=== PATIENT | female | born 1945 | race Caucasian/White ===

== ENCOUNTER → 2018-01-26 | Outpatient (CLI) | payer MEDICARE ==
[~2018-01-26] MED LIST: ASPIRIN CHEW81 MG PO; IRON159 MG PO; LISINOPRIL20 MG PO; MELOXICAM15 MG PO; OMEPRAZOLE20 MG PO; WELLBUTRIN100 MG PO
--- NOTE | 2018-01-26 12:59 | Diagnostic Imaging Report ---
PROCEDURE:X-RAY LEFT FOOT, COMPLETE COMPARISON:None. INDICATIONS:ULCER ON LEFT FOOT, second toe FINDINGS: Normal mineralization. No acute, displaced fracture or dislocation. No lytic or blastic lesions. No areas of cortical erosion or destruction. Specifically, no cortical abnormalities in the second toe. Degenerative changes in the midfoot/hindfoot joints, and first metatarsophalangeal joint, with mild hallux valgus deformity. Small anterior calcaneal enthesophyte. No soft tissue defects are identified. CONCLUSION: 1. No areas of cortical erosion or destruction. Specifically, no cortical abnormalities are noted in the second toe. No soft tissue defects are seen. Milton Contreras M.D. Dictated by: Milton Contreras M.D. on 01/26/2018 at 13:04 Electronically approved by: Milton Contreras M.D. on 01/26/2018 at 13:04
== END ==
LOC: RAD 10:55
PROVIDERS: ATTEND Family Medicine
DX: L97.509 Non-pressure chronic ulcer of other part of unspecified foot with unspecified severity (principal)

== ENCOUNTER 2019-08-08 13:25 | Inpatient (IN) | payer MEDICARE ==
[~2019-08-08] VITALS: Ht 167.6 cm; Wt 103.7 kg
--- OUTSIDE RECORDS SUMMARY | 2019-08-08 13:28 | XMS REPORT ---
Author Author [facility] Address Unknown Phone Unavailable Care Team Providers Care Vegetable Farmworker Name Role Phone Remedios RENDON Unavailable Unavailable Problems This patient has no known problems. Allergies, Adverse Reactions, Alerts This patient has no known allergies or adverse reactions. Medications This patient has no known medications. Results Test Description Test Time Test Comments Text Results Atomic Results Result Comments FOOT LEFT COMPLETE 2018-01-26 13:04:00 [facility] [address] [address] Patient Name: KELBY PIKE MR #: [id number] : 1945 Age/Sex: 72/F Req #: [id number] Adm Physician: Ordered by: NASEEM RENDON MD Report #: [id number] Location: [facility] Room/Bed: Procedure: [id number] DX/FOOT LEFT COMPLETE Exam Date: 01/26/18 Exam Time: 1100 REPORT STATUS: Signed PROCEDURE: X-RAY LEFT FOOT, COMPLETE COMPARISON: None. INDICATIONS: ULCER ON LEFT FOOT, second toe FINDINGS: Normal mineralization. No acute, displaced fracture or dislocation. No lytic or blastic lesions. No areas of cortical erosion or destruction. Specifically, no cortical abnormalities in the second toe. Degenerative changes in the midfoot/hindfoot joints, and first metatarsophalangeal joint, with mild hallux valgus deformity. Small anterior calcaneal enthesophyte. No soft tissue defects are identified. CONCLUSION: 1. No areas of cortical erosion or destruction. Specifically, no cortical abnormalities are noted in the second toe. No soft tissue defects are seen. Brad Cazares M.D. Dictated by: Brad Cazares M.D. on 01/26/2018 at 13:04 E lectronically approved by: Brad Cazares M.D. on 01/26/2018 at 13:04 Dictated By: BRAD CAZARES MD 1302 Transcribed By: ROHITH on 01/26/18 1304 COPY TO: NASEEM RENDON MD
--- NOTE | 2019-08-08 14:22 | NUR ---
incontinence care provided for stool with assistance x 1. patient placed in clean adult brief, provided clean linens and gown. bed placed in lowest position slightly trendelenburg with call light in reach.
--- NOTE | 2019-08-08 15:00 | Diagnostic Imaging Report ---
EXAMINATION: CHEST SINGLE (PORTABLE) INDICATION: Weakness, hypotension COMPARISON: None FINDINGS: LINES/TUBES:EKG leads overlie the chest. LUNGS:The lung volumes are low. Pulmonary vascular crowding, likely related to low lung volumes. No focal consolidation or pulmonary edema. PLEURA:No pleural effusion or pneumothorax. MEDIASTINUM:The cardiomediastinal silhouette appears enlarged. Large hiatal hernia. BONES/SOFT TISSUES:No acute osseous injury. ABDOMEN:No free air under the diaphragm. IMPRESSION: Low lung volumes. No focal pneumonia or pulmonary edema. Cardiomegaly. Large hiatal hernia. Signed by: Bhumika Ferrara MD on 08/08/2019 2:57 PM
[2019-08-08 15:05] LABS: BASOPHILS # (AUTO) 0.1 (0.0-0.1); BASOPHILS % 0.5 % (0.0-1.0); EOSINOPHILS # (AUTO) 0.7 (0.0-0.4); HEMATOCRIT 43.1 % (34.2-44.1); HEMOGLOBIN 13.5 g/dL (12.0-16.0); LYMPHOCYTES # (AUTO) 2.2 (1.0-3.2); LYMPHOCYTES % 16.5 % (18.0-39.1); MEAN CORPUSCULAR HEMOGLOBIN 28.8 pg (28-32); MEAN CORPUSCULAR HGB CONC 31.3 g/dL (31-35); MEAN CORPUSCULAR VOLUME 91.9 fL (81-99); MONOCYTES # (AUTO) 0.9 (0.2-0.8); MONOCYTES % 6.6 % (4.4-11.3); NEUTROPHILS # (AUTO) 9.5 (2.1-6.9); NEUTROPHILS % 70.8 % (38.7-80.0); PLATELET COUNT 243 x10e3/uL (140-360); RED BLOOD COUNT 4.69 x10e6/uL (3.6-5.1); RED CELL DISTRIBUTION WIDTH 14.1 % (11.7-14.4)
[2019-08-08 15:28] LABS: ALBUMIN 3.1 g/dL (3.5-5.0); ALBUMIN/GLOBULIN RATIO 0.8 (0.8-2.0); CALCIUM 8.8 mg/dL (8.4-10.2); CREATININE, SERUM 1.57 mg/dL (0.57-1.11)
[2019-08-08 15:41] LABS: CREATINE KINASE MB 1.6 ng/mL (0-5.0)
[2019-08-08] MEDS ORDERED: MORPHINE SULFATE INJ 4 MG/ML INJ 1ML IV STA (15:59)
[2019-08-08] MEDS ORDERED: MORPHINE SULFATE 2 MG/ML SYR 1ML IV ONE (16:15)
--- NOTE | 2019-08-08 17:20 | NUR ---
incontinence care provided for stool with assistance x 1. Patient placed in clean adult brief, clean gown and new linens provided.
--- NOTE | 2019-08-08 17:42 | Diagnostic Imaging Report ---
EXAM: CT Abdomen and Pelvis WITHOUT intravenous contrast INDICATION: Abdominal pain, hypotension COMPARISON: CT abdomen and pelvis of 05/03/2014 TECHNIQUE: Abdomen and pelvis were scanned utilizing a multidetector helical scanner from the lung base to the pubic symphysis without administration of IV contrast. Coronal and sagittal reformations were obtained. IV CONTRAST: None ORAL CONTRAST: Water COMPLICATIONS: None RADIATION DOSE: Total DLP: 932.1 mGy*cm Dose modulation, iterative reconstruction, and/or weight based adjustment of the mA/kV was utilized to reduce the radiation dose to as low as reasonably achievable. FINDINGS: LOWER THORAX: Mild bibasilar dependent subsegmental atelectasis. Scattered coronary artery calcifications. Large hiatal hernia with the majority of the stomach above the diaphragm. HEPATOBILIARY: No focal liver lesion. Status post cholecystectomy. SPLEEN: No splenomegaly. PANCREAS: No focal masses or ductal dilatation. ADRENALS: No adrenal nodules. KIDNEYS/URETERS: No hydronephrosis, stones, or solid mass lesions. PELVIC ORGANS/BLADDER: Evaluation limited by streak artifact related to right and left total hip arthroplasty hardware. PERITONEUM / RETROPERITONEUM: No free air or fluid. LYMPH NODES: No lymphadenopathy. VESSELS: Scattered atherosclerotic calcifications of the nonaneurysmal abdominal aorta and major branches. GI TRACT: Mild diverticulosis. No CT evidence of diverticulitis. Fluid-filled colon no abnormal bowel thickening. No bowel obstruction. The appendix is not well visualized, however there are no secondary inflammatory changes in the right lower quadrant to suggest acute appendicitis. BONES AND SOFT TISSUES: No acute osseous injury. No suspicious lytic or blastic lesions. Levoconvex curvature and severe degenerative changes of the lumbar spine. IMPRESSION: Fluid-filled colon, which can be seen with enterocolitis. No abnormal bowel thickening or bowel obstruction. Diverticulosis without CT evidence of diverticulitis. Large hiatal hernia with the majority of the stomach above the diaphragm. Signed by: Bhumika Ferrara MD on 08/08/2019 5:39 PM
[2019-08-08] MEDS ORDERED: FAMOTIDINE 20 MG/2 ML VIAL IV SCH (18:00)
[2019-08-08] MEDS: SODIUM CHLORIDE 0.9% 1000ML 1,000 ML IV SCH (18:12)
--- NOTE | 2019-08-08 19:06 | NUR ---
report given to Davon IZQUIERDO
[2019-08-08 21:34] VITALS: BP 140/69
[2019-08-09] VITALS (12 sets, daily range): BP systolic 117–148; BP diastolic 58–95
--- NOTE | 2019-08-09 00:43 | NUR ---
PT IS TRANSFERRED FROM ER .PT IS AOX3 RESPIRATIONS ARE EVEN AND UN LABORED .SKIN WARM AND DRY TO TOUCH.DX ABD PAIN AND DIARRHEA LEFT AC 20G NS AT 125 CC/HR ASSESSMENT DONE .ORIENTED THE PT TO THE ENVIRONMENT .CALL LIGHT WITH IN REACH.BED LOWEST POSITION .CONTINUE TO MONITOR
[2019-08-09] MEDS: ONDANSETRON HCL INJ 2MG/ML 2ML 2 MG/ML VIAL IV PRN (04:05)
[2019-08-09] MEDS: MORPHINE SULFATE 2 MG/ML SYR 1ML IV PRN (04:05)
[2019-08-09 04:22] LABS: CREATINE KINASE MB 1.8 ng/mL (0-5.0)
[2019-08-09] MEDS: SODIUM CHLORIDE 0.9% 1000ML 1,000 ML IV SCH ×3 (05:31→16:25)
[2019-08-09 06:37] LABS: BASOPHILS % 0.2 % (0.0-1.0); EOSINOPHILS # (AUTO) 0.1 (0.0-0.4); EOSINOPHILS % 0.5 % (0.0-6.0); HEMATOCRIT 36.9 % (34.2-44.1); HEMOGLOBIN 11.5 g/dL (12.0-16.0); LYMPHOCYTES # (AUTO) 1.3 (1.0-3.2); LYMPHOCYTES % 8.7 % (18.0-39.1); MEAN CORPUSCULAR HEMOGLOBIN 28.5 pg (28-32); MEAN CORPUSCULAR HGB CONC 31.2 g/dL (31-35); MEAN CORPUSCULAR VOLUME 91.6 fL (81-99); MONOCYTES # (AUTO) 1.1 (0.2-0.8); MONOCYTES % 7.1 % (4.4-11.3); NEUTROPHILS # (AUTO) 12.3 (2.1-6.9); NEUTROPHILS % 83.1 % (38.7-80.0); PLATELET COUNT 157 x10e3/uL (140-360); RED BLOOD COUNT 4.03 x10e6/uL (3.6-5.1); RED CELL DISTRIBUTION WIDTH 14.2 % (11.7-14.4)
--- NOTE | 2019-08-09 06:47 | NUR ---
.PT RESTING .BEDSIDE REPORT GIVEN TO THE ONCOMING NURSE
[2019-08-09 06:55] LABS: ALBUMIN 2.7 g/dL (3.5-5.0); ALBUMIN/GLOBULIN RATIO 0.8 (0.8-2.0); CREATININE, SERUM 1.34 mg/dL (0.57-1.11)
[2019-08-09] MEDS: FAMOTIDINE 20 MG/2 ML VIAL IV SCH ×2 (09:00→16:19)
[2019-08-09 11:40] LABS: CREATINE KINASE MB 0.9 ng/mL (0-5.0)
[2019-08-09] MEDS ORDERED: COLACE100 MG PO (17:16)
[2019-08-09] MEDS ORDERED: LASIX20 MG PO (17:28)
[2019-08-09] MEDS ORDERED: PROPRANOLOL HCL60 M1 (17:28)
[2019-08-09] MEDS ORDERED: LYRICA150 MG (17:28)
[2019-08-09] MEDS ORDERED: MECLIZINE HCL12.5 MG PO (17:28)
[2019-08-09] MEDS ORDERED: CYMBALTA30 MG (17:28)
[2019-08-09] MEDS: CIPROFLOXACIN 400 MG/D5W 200ML 200 ML IV SCH (17:48)
--- NOTE | 2019-08-09 18:44 | NUR ---
LEFT AC IV INFILTRATED WHILE PATIENT WAS IN THE BATHROOM. SALINE LOCK REMOVED. AREA IS SWOLLEN AND TENDER. WARM BLANKET AND ELEVATION TO HELP IT REDUCE. NEW SALINE LOCK STARTED IN THE RIGHT WRIST22 G WITHOUT DIFFICULTY
--- NOTE | 2019-08-09 19:23 | NUR ---
RECEIVED PT IN BED AOX3 .PT LEFT UPPER ARM INFILTRATED .C/O SLIGHT ABD PAIN .CALL LIGHT WITH IN REACH .CONTINUE TO MONITOR
[2019-08-09] MEDS: METRONIDAZOLE 500MG/NS 100ML 100 ML IV SCH (22:30)
[2019-08-10] VITALS (8 sets, daily range): BP systolic 132–150; BP diastolic 60–67
[2019-08-10] MEDS: MORPHINE SULFATE 2 MG/ML SYR 1ML IV PRN (00:45)
--- NOTE | 2019-08-10 01:19 | History and Physical ---
CHIEF COMPLAINT: Nausea and near-syncope. HISTORY OF PRESENT ILLNESS: Ms. Susan Mace is a 74-year-old female with a history of iron deficiency and history of neuropathy, who was in usual state of health until the patient came back from her visit to her daughters, which is in the [place]. The patient came back and was ready to go to the bathroom and all of a sudden the patient had this abdominal pain. The patient made it to the bathroom, sat on the pot and had a near-syncopal episode, almost fainted. The patient had some nausea and no vomiting and the patient activated 911 and the patient was brought here. PAST MEDICAL HISTORY: History of depression, history of iron deficiency anemia, hypertension, and essential tremors and also with neuropathy. MEDICATIONS: She takes at home: 1. Wellbutrin 100 mg, a total of 300 daily. 2. Docusate 100 mg twice a day. 3. Duloxetine 30 mg b.i.d. 4. Ferrous sulfate 65 mg twice a day. 5. Lasix 20 mg daily. 6. Lisinopril 20 mg daily. 7. Meclizine 12.5 mg daily. 8. Omeprazole 20 mg daily. 9. Pregabalin 150 mg daily. 10. twice a day. SURGICAL HISTORY: History of bilateral knee replacement, history of bilateral hip replacement and gallbladder surgery. ALLERGIES: ALLERGIC TO DIAZEPAM. SOCIAL HISTORY: No EtOH. No IV drug abuse. No history of smoking. REVIEW OF SYSTEMS: Negative for chest pain. Positive for abdominal pain and positive for nausea. No vomiting. No diarrhea. No constipation. No rectal bleeding. No hematochezia. No hematemesis. PHYSICAL EXAMINATION: VITAL SIGNS: Temperature is 99.5, respiration of 18, blood pressure is 140/63, pulse oximetry of 95%. HEENT: Normocephalic, atraumatic. Pupils are reactive to light and accommodation. CVS: S1 and S2 normal. Regular rate and rhythm. ABDOMEN: Tender in the epigastrium and the periumbilical area in the left lower quadrant. No rebound. No guarding present. EXTREMITIES: No clubbing, no cyanosis, no edema. LABORATORY VALUES: White count is 14,000, hemoglobin of 11.5, neutrophil count is 83.1. Chemistry shows sodium of 142, potassium of 4.0, BUN of 25, creatinine of 1.35. Troponins have been trended to be negative. IMAGING STUDIES: Chest x-ray shows a large hiatal hernia and cardiomegaly. No pulmonary findings. CT findings show fluid-filled colon, which could be seen in enterocolitis. No abdominal wall thickening or wall obstruction. Diverticulosis without evidence of diverticulitis. Large hiatal hernia with the majority of stomach above the diaphragm. ASSESSMENT: 1. Colitis. 2. Intractable nausea and abdominal pain. 3. Hypertension. 4. Hyperlipidemia. 5. Morbid obesity. PLAN: Continue on Levaquin and Flagyl, which have been started for the patient. The patient is also on sodium chloride 125 mL an hour, morphine sulfate for pain control. We will restart her home medication. Further recommendation per clinical course. We will also start clear liquid diet. Additional diagnosis include acute kidney injury, for which fluid resuscitation is the treatment. MD JUDIE Thapa/MODL /[id number]
[2019-08-10] MEDS ORDERED: ACETAMINOPHEN 325 MG TAB PO PRN (03:30)
[2019-08-10] MEDS: CIPROFLOXACIN 400 MG/D5W 200ML 200 ML IV SCH ×2 (04:00→16:09)
[2019-08-10 06:11] LABS: BASOPHILS % 0.4 % (0.0-1.0); EOSINOPHILS # (AUTO) 0.4 (0.0-0.4); EOSINOPHILS % 3.9 % (0.0-6.0); HEMATOCRIT 31.5 % (34.2-44.1); HEMOGLOBIN 10.1 g/dL (12.0-16.0); LYMPHOCYTES # (AUTO) 1.6 (1.0-3.2); LYMPHOCYTES % 17.8 % (18.0-39.1); MEAN CORPUSCULAR HEMOGLOBIN 29.2 pg (28-32); MEAN CORPUSCULAR HGB CONC 32.1 g/dL (31-35); MONOCYTES # (AUTO) 0.7 (0.2-0.8); NEUTROPHILS # (AUTO) 6.2 (2.1-6.9); NEUTROPHILS % 69.6 % (38.7-80.0); PLATELET COUNT 109 x10e3/uL (140-360); RED BLOOD COUNT 3.46 x10e6/uL (3.6-5.1); RED CELL DISTRIBUTION WIDTH 14.4 % (11.7-14.4)
--- NOTE | 2019-08-10 06:24 | NUR ---
PT C/O PAIN GIVEN ORDERED MORPHINE .DR DALEY HAVE SEEN THE PT .GIVEN NEW ORDERS .CONTINUE TO MONITOR
[2019-08-10] MEDS: METRONIDAZOLE 500MG/NS 100ML 100 ML IV SCH ×3 (06:27→21:04)
[2019-08-10] MEDS: PANTOPRAZOLE 40 MG 10ML VIAL IV SCH ×2 (06:40→16:09)
[2019-08-10] MEDS: SODIUM CHLORIDE 0.9% 1000ML 1,000 ML IV SCH ×3 (06:41→21:28)
[2019-08-10 06:44] LABS: ALBUMIN 2.5 g/dL (3.5-5.0); ALBUMIN/GLOBULIN RATIO 0.8 (0.8-2.0); ANION GAP 9.4 mmol/L (8-16); CALCIUM 8.6 mg/dL (8.4-10.2); POTASSIUM 3.4 mmol/L (3.5-5.1)
[2019-08-10 07:03] LABS: FERRITIN 85.2 ng/mL (4.63-204.00)
--- NOTE | 2019-08-10 07:30 | NUR ---
BED SIDE REPORT GIVEN TO THE ONCOMING NURSE
[2019-08-10 07:52] LABS: CLARITY,URINE CLEAR (CLEAR); COLOR,URINE YELLOW (YELLOW); LEUKOCYTE ESTERASE ,URINE TRACE (NEGATIVE)
[2019-08-10 07:53] LABS: BILIRUBIN,URINE NEGATIVE (NEGATIVE); KETONES,URINE NEGATIVE (NEGATIVE); NITRITE,URINE NEGATIVE (NEGATIVE); PROTEIN,URINE DIPSTICK NEGATIVE (NEGATIVE); URINE UROBILINOGEN 0.2 mg/dL (0.2 - 1)
[2019-08-10 07:59] LABS: BACTERIA,URINE MODERATE /HPF; EPITHELIAL CELLS,URINE MANY /LPF
[2019-08-10] MEDS: BUPROPION HCL 150 MG TABCR PO SCH (09:00)
[2019-08-10] MEDS: LISINOPRIL 20 MG TAB PO SCH (09:00)
[2019-08-10] MEDS: FAMOTIDINE 20 MG/2 ML VIAL IV SCH ×2 (09:00→17:59)
[2019-08-10] MEDS: DOCUSATE SODIUM 100 MG CAP PO SCH (09:00)
[2019-08-10] MEDS: DULOXETINE HCL 30 MG DELAYED RELEASE PO SCH ×2 (09:00→17:59)
[2019-08-10] MEDS: FUROSEMIDE 20 MG TAB PO SCH (09:00)
[2019-08-10] MEDS ORDERED: PANTOPRAZOLE SOD 40 MG TABEC PO SCH (09:00)
--- NOTE | 2019-08-10 10:09 | Progress Note ---
DATE: SUBJECTIVE: A 74-year-old female, who comes in with symptoms of colitis. The patient still has some abdominal pain. OBJECTIVE: VITAL SIGNS: Temperature is 97.9, afebrile, last T-max on 08/09/2019 at 1944 shows 99.5 and pulse oximetry of 93% on room air. HEENT: Normocephalic and atraumatic. CVS: S1 and S2 normal. LUNGS: Clear to auscultation. ABDOMEN: Protuberant, tender in the epigastrium. EXTREMITIES: No clubbing, no cyanosis, and no edema. LABORATORY VALUES: Today's white count is 8.93 trended down, hemoglobin of 10.1, hematocrit of 31.5, neutrophil count of 69.6. Chemistries are pending and stool studies not done yet. ASSESSMENT: Ms. Susan Mace with: 1. Gastroenteritis. 2. Leukocytosis. 3. Intractable nausea and pain. 4. Hyperlipidemia. 5. Morbid obesity. PLAN: Continue on Levaquin and Flagyl. Continue with fluids at this time. Morphine sulfate for pain control. Further recommendation per clinical course and we are awaiting stool studies and we will monitor the patient and treatment per clinical course. MD JUDIE Thapa/IFRAHL /[id number]
[2019-08-10] MEDS: ENOXAPARIN 30 MG/0.3 ML SYR SC SCH (17:59)
[2019-08-11] VITALS (8 sets, daily range): BP systolic 109–148; BP diastolic 51–67
[2019-08-11] MEDS: SODIUM CHLORIDE 0.9% 1000ML 1,000 ML IV SCH ×3 (01:01→18:31)
[2019-08-11] MEDS: PANTOPRAZOLE 40 MG 10ML VIAL IV SCH ×2 (02:47→15:30)
[2019-08-11] MEDS: CIPROFLOXACIN 400 MG/D5W 200ML 200 ML IV SCH ×2 (03:13→16:00)
[2019-08-11] MEDS: METRONIDAZOLE 500MG/NS 100ML 100 ML IV SCH ×3 (05:20→22:00)
[2019-08-11 05:21] LABS: BASOPHILS % 0.5 % (0.0-1.0); EOSINOPHILS # (AUTO) 0.3 (0.0-0.4); EOSINOPHILS % 4.9 % (0.0-6.0); HEMATOCRIT 32.8 % (34.2-44.1); HEMOGLOBIN 10.4 g/dL (12.0-16.0); LYMPHOCYTES # (AUTO) 1.5 (1.0-3.2); LYMPHOCYTES % 22.4 % (18.0-39.1); MEAN CORPUSCULAR HGB CONC 31.7 g/dL (31-35); MEAN CORPUSCULAR VOLUME 91.4 fL (81-99); MONOCYTES # (AUTO) 0.6 (0.2-0.8); MONOCYTES % 9.5 % (4.4-11.3); NEUTROPHILS % 62.1 % (38.7-80.0); PLATELET COUNT 111 x10e3/uL (140-360); RED BLOOD COUNT 3.59 x10e6/uL (3.6-5.1); RED CELL DISTRIBUTION WIDTH 14.1 % (11.7-14.4)
[2019-08-11 05:44] LABS: ALBUMIN 2.6 g/dL (3.5-5.0); ALBUMIN/GLOBULIN RATIO 0.7 (0.8-2.0); ANION GAP 11.8 mmol/L (8-16); CALCIUM 8.5 mg/dL (8.4-10.2); CREATININE, SERUM 1.03 mg/dL (0.57-1.11); POTASSIUM 3.8 mmol/L (3.5-5.1)
[2019-08-11] MEDS: ONDANSETRON HCL INJ 2MG/ML 2ML 2 MG/ML VIAL IV PRN (06:26)
[2019-08-11] MEDS: MORPHINE SULFATE 2 MG/ML SYR 1ML IV PRN (06:26)
[2019-08-11] MEDS: IRON SUCROSE 100 MG in SODIUM CHLORIDE 0.9% 100 ML 100 ML IV SCH (08:00)
[2019-08-11] MEDS: DOCUSATE SODIUM 100 MG CAP PO SCH (08:52)
[2019-08-11] MEDS: FAMOTIDINE 20 MG/2 ML VIAL IV SCH ×2 (08:52→17:00)
[2019-08-11] MEDS: BUPROPION HCL 150 MG TABCR PO SCH (08:52)
[2019-08-11] MEDS: FUROSEMIDE 20 MG TAB PO SCH (08:52)
[2019-08-11] MEDS: DULOXETINE HCL 30 MG DELAYED RELEASE PO SCH ×2 (08:52→17:00)
[2019-08-11] MEDS: LISINOPRIL 20 MG TAB PO SCH (08:52)
[2019-08-11] MEDS: ENOXAPARIN 30 MG/0.3 ML SYR SC SCH (17:00)
--- NOTE | 2019-08-11 19:30 | NUR ---
Patient received lying in bed. AAO x 3. Patient had no complaints of pain. Respirations even and non-labored. IVF infusing at 125 cc/hr. Safety measures in place. Patient instructed to call for assistance when needed. Call light within reach.
[2019-08-11] MEDS ORDERED: PEG (High)/E-LYTE SOLN 4,000 ML BTL PO ONE (23:45)
--- NOTE | 2019-08-11 23:46 | NUR ---
Dr. Cordelia Dolan here to see patient. New orders received to change diet from Full liquid to Clear liquid for Colonoscopy procedure tomorrow. And for patient to start taking Go-Danielly from 2pm on 08/12/19. Addendum: 08/12/19 at 0125 by Zoie Biswas RN RE: Above entry---Colonoscopy procedure is on 08/13/19.
[2019-08-12] VITALS (8 sets, daily range): BP systolic 127–159; BP diastolic 60–71
[2019-08-12] MEDS ORDERED: PEG (High)/E-LYTE SOLN 4,000 ML BTL PO ONE (00:15)
--- NOTE | 2019-08-12 01:05 | NUR ---
Patient informed about upcoming procedure--Colonoscopy. Patient voluntarily signed "Disclosure and Consent" form.
[2019-08-12] MEDS: PANTOPRAZOLE 40 MG 10ML VIAL IV SCH ×2 (03:30→14:21)
[2019-08-12] MEDS: SODIUM CHLORIDE 0.9% 1000ML 1,000 ML IV SCH ×3 (03:30→21:18)
[2019-08-12] MEDS: CIPROFLOXACIN 400 MG/D5W 200ML 200 ML IV SCH ×2 (04:00→16:00)
--- NOTE | 2019-08-12 05:07 | NUR ---
IV infiltrated on left hand. Old IV removed with tip intact. New IV inserted in right forearm 20G. Patient tolerated well.
[2019-08-12] MEDS: METRONIDAZOLE 500MG/NS 100ML 100 ML IV SCH ×3 (06:39→22:35)
--- NOTE | 2019-08-12 07:00 | NUR ---
Walking rounds and bedside report done. Patient resting comfortably.
[2019-08-12] MEDS: IRON SUCROSE 100 MG in SODIUM CHLORIDE 0.9% 100 ML 100 ML IV SCH (08:00)
[2019-08-12] MEDS: DOCUSATE SODIUM 100 MG CAP PO SCH (09:07)
[2019-08-12] MEDS: FAMOTIDINE 20 MG/2 ML VIAL IV SCH ×2 (09:07→17:00)
[2019-08-12] MEDS: DULOXETINE HCL 30 MG DELAYED RELEASE PO SCH ×2 (09:07→17:00)
[2019-08-12] MEDS: FUROSEMIDE 20 MG TAB PO SCH (09:08)
[2019-08-12] MEDS: FOLIC ACID 1 MG TAB PO SCH (09:08)
[2019-08-12] MEDS: BUPROPION HCL 150 MG TABCR PO SCH (09:09)
[2019-08-12] MEDS: LISINOPRIL 20 MG TAB PO SCH (09:09)
[2019-08-12] MEDS ORDERED: PEG (High)/E-LYTE SOLN 4,000 ML BTL PO NR (15:15)
[2019-08-12] MEDS: ENOXAPARIN 30 MG/0.3 ML SYR SC SCH (17:00)
--- NOTE | 2019-08-12 19:26 | NUR ---
WALKING ROUNDS COMPLETE. , PT STABLE AT THIS TIME.
--- NOTE | 2019-08-12 19:28 | NUR ---
Patient received sitting up in bed. AAO x 3. Patient had complaints of nausea and vomiting while attempting to drink Go-lytely but declines administration of Zofran. Will continue to monitor.
[2019-08-12] MEDS ORDERED: BISACODYL 5 MG TAB EC PO ONE ×2 (22:30→23:30)
[2019-08-12] MEDS ORDERED: ONDANSETRON HCL 4 MG ORAL DISINTEGRATING TAB PO PRN (22:30)
--- NOTE | 2019-08-12 22:42 | NUR ---
Dr. Dolan here to see patient. New orders received.
--- NOTE | 2019-08-12 23:39 | NUR ---
IV infiltrated on right arm. Old IV removed with tip intact. New IV inserted in right forearm 20G. Patient tolerated well.
[2019-08-13] VITALS (8 sets, daily range): BP systolic 126–145; BP diastolic 60–67
--- NOTE | 2019-08-13 00:06 | NUR ---
Stool specimen sent to lab for analysis.
[2019-08-13] MEDS ORDERED: BISACODYL 5 MG TAB EC PO ONE (00:30)
[2019-08-13] MEDS: SODIUM CHLORIDE 0.9% 1000ML 1,000 ML IV SCH ×3 (01:51→16:53)
[2019-08-13] MEDS: PANTOPRAZOLE 40 MG 10ML VIAL IV SCH ×2 (03:30→16:15)
[2019-08-13] MEDS: CIPROFLOXACIN 400 MG/D5W 200ML 200 ML IV SCH ×2 (04:08→16:00)
[2019-08-13] MEDS: METRONIDAZOLE 500MG/NS 100ML 100 ML IV SCH ×3 (05:53→22:30)
--- NOTE | 2019-08-13 07:00 | NUR ---
BSSR done. Patient resting comfortably.
--- NOTE | 2019-08-13 07:10 | NUR ---
RCD PT AT BED PT IS ALERT AND ORIENTED PT RESTING ON BED NO SIGNS OF ANY DISTRESS NOTE IV PATENT BED LOW AND LOCKED CALL LIGHT IN REACH
[2019-08-13] MEDS: IRON SUCROSE 100 MG in SODIUM CHLORIDE 0.9% 100 ML 100 ML IV SCH (08:00)
[2019-08-13] MEDS: LISINOPRIL 20 MG TAB PO SCH (08:36)
[2019-08-13] MEDS: FAMOTIDINE 20 MG/2 ML VIAL IV SCH ×2 (08:36→16:53)
[2019-08-13] MEDS: DOCUSATE SODIUM 100 MG CAP PO SCH (08:36)
[2019-08-13] MEDS: DULOXETINE HCL 30 MG DELAYED RELEASE PO SCH ×2 (08:36→16:53)
[2019-08-13] MEDS: FOLIC ACID 1 MG TAB PO SCH (08:36)
[2019-08-13] MEDS: FUROSEMIDE 20 MG TAB PO SCH (08:36)
[2019-08-13] MEDS: BUPROPION HCL 150 MG TABCR PO SCH (08:36)
--- NOTE | 2019-08-13 09:00 | NUR ---
PT NPO FOR PROCEDURE
--- NOTE | 2019-08-13 11:30 | NUR ---
TAP WATER ENEMA GIVEN
--- NOTE | 2019-08-13 13:44 | NUR ---
PT WENT TO PROCEDURE IN SAFE CONDITION
--- NOTE | 2019-08-13 16:00 | NUR ---
PT BACK AFTER PROCEDURE PT IS ALERT AND ORIENTED VITALS CHECKED BED LOW AD LOCKED CALL LIGHT IN REACH
[2019-08-13] MEDS: ENOXAPARIN 30 MG/0.3 ML SYR SC SCH (16:53)
--- NOTE | 2019-08-13 18:21 | NUR ---
DC TELEY BY ORDER
[2019-08-13 18:24] LABS: WBC,FECAL (FECAL LACTOFERRIN) POSITIVE (NEGATIVE)
[2019-08-13] MEDS ORDERED: GLUCAGON FOR INJ 1 MG VIAL ONE (18:25)
[2019-08-13] MEDS ORDERED: PROPOFOL IV EMULSION 10 MG/ML 50 ML VIAL ONE (18:25)
--- NOTE | 2019-08-13 18:40 | NUR ---
PT RESTING ON BED BED SIDE REPORT GIVEN TO ONCOMING NURSE
--- NOTE | 2019-08-13 18:59 | Operative Report ---
DATE OF PROCEDURE: 08/13/2019 SURGEON: Shawn Dolan MD PROCEDURE: Colonoscopy with polypectomy and biopsies. INDICATIONS FOR COLONOSCOPY: Bloody diarrhea. MEDICATIONS: The patient was done under MAC, please see anesthesiologist's note. PROCEDURE IN DETAIL: With the patient in the left lateral decubitus position, a flexible fiberoptic Olympus colonoscope was inserted into the rectum with ease and advanced all the way to the cecum. The scope was then withdrawn slowly. Mucosa overlying the cecum, ascending colon, and transverse colon appeared to be within normal limits. The descending and sigmoid, primarily the sigmoid colon was ulcerated and multiple biopsies were obtained. There was some diverticular disease noted in the sigmoid colon. One polyp was removed per snare electrocautery and additional polyp was hot biopsied in the rectum. The scope was then retroflexed into the distal rectum and small internal hemorrhoids were noted, none of which was actively bleeding. The scope was then straightened out, it was subsequently withdrawn, and the patient tolerated the procedure well. IMPRESSION: 1. Ulcerated left colon, biopsies obtained. 2. Diverticulosis. 3. Rectal polyps x2, one removed per snare electrocautery and one hot biopsied. 4. Internal hemorrhoids, none actively bleeding. PLAN: Follow up histology. Follow up stool studies. Initiate GI soft diet. Shawn Dolan MD [facility]/MODL /[id number] cc: Vinh Botello MD
--- NOTE | 2019-08-13 19:25 | NUR ---
Patient received asleep in bed. Arousable by tactile stimuli. No acute distress noted. Call light within reach.
--- NOTE | 2019-08-13 20:45 | Progress Note ---
DATE: SUBJECTIVE: The patient came in with colitis, gastroenteritis, and the patient underwent a colonoscopy today showed colitis and also polyps are snared. Currently, the patient is tolerating diet, feeling better. No chest pain or shortness of breath and is able to tolerate her diet. PHYSICAL EXAMINATION: GENERAL: The patient is alert and oriented x3. VITAL SIGNS: Temperature is 98.3, pulse of 87, respirations 17, and blood pressure is 133/60. HEENT: Normocephalic, atraumatic. Pupils are reactive to light and accommodation. CVS: S1 and S2 normal. Regular rhythm. ABDOMEN: Tender in the epigastric area, also in the left upper quadrant. EXTREMITIES: Otherwise, no clubbing, no cyanosis, no edema. MEDICATIONS: The patient is on enoxaparin for deep venous thrombosis prophylaxis. Duloxetine, pantoprazole 40, Flagyl, and Cipro. Iron replacement has been done. LABORATORY VALUES: From , hemoglobin and hematocrit are stable at 10.4 and 32.8. Chemistries; from , show a BUN of 10, creatinine of 1.03. ASSESSMENT: Ms. Susan Mace is a 74-year-old female with: 1. Colitis, gastroenteritis. 2. Leukocytosis, better. 3. Intractable nausea and pain, better. 4. Hyperlipidemia. Continue medication. 5. Morbid obesity. Continue monitoring. 6. Iron deficiency. Continue on Venofer. PLAN: Possible discharge tomorrow. Advance diet. Discontinue telemetry. Further recommendation per clinical course. MD JUDIE Thapa/MODL /[id number]
[2019-08-14] VITALS (8 sets, daily range): BP systolic 124–147; BP diastolic 60–65
[2019-08-14] MEDS: PANTOPRAZOLE 40 MG 10ML VIAL IV SCH ×2 (03:30→16:11)
[2019-08-14] MEDS: CIPROFLOXACIN 400 MG/D5W 200ML 200 ML IV SCH ×2 (04:25→16:11)
--- NOTE | 2019-08-14 04:28 | NUR ---
IV infiltrated on right arm. Old IV removed with tip intact. New IV inserted in right forearm 20G. Patient tolerated well.
[2019-08-14] MEDS: METRONIDAZOLE 500MG/NS 100ML 100 ML IV SCH (05:51)
--- NOTE | 2019-08-14 07:00 | NUR ---
Walking rounds done. Bedside shift report given to oncoming nurse.
[2019-08-14 07:23] LABS: BASOPHILS % 0.4 % (0.0-1.0); EOSINOPHILS # (AUTO) 0.1 (0.0-0.4); EOSINOPHILS % 1.8 % (0.0-6.0); HEMATOCRIT 32.7 % (34.2-44.1); HEMOGLOBIN 10.3 g/dL (12.0-16.0); LYMPHOCYTES # (AUTO) 1.4 (1.0-3.2); LYMPHOCYTES % 28.7 % (18.0-39.1); MEAN CORPUSCULAR HEMOGLOBIN 28.3 pg (28-32); MEAN CORPUSCULAR HGB CONC 31.5 g/dL (31-35); MEAN CORPUSCULAR VOLUME 89.8 fL (81-99); MONOCYTES # (AUTO) 0.6 (0.2-0.8); NEUTROPHILS # (AUTO) 2.7 (2.1-6.9); NEUTROPHILS % 54.9 % (38.7-80.0); PLATELET COUNT 129 x10e3/uL (140-360); RED BLOOD COUNT 3.64 x10e6/uL (3.6-5.1)
[2019-08-14 08:18] LABS: ANION GAP 13.5 mmol/L (8-16); CALCIUM 8.1 mg/dL (8.4-10.2); CREATININE, SERUM 1.02 mg/dL (0.57-1.11)
[2019-08-14 08:27] LABS: POTASSIUM 2.5 mmol/L (3.5-5.1)
[2019-08-14] MEDS: LISINOPRIL 20 MG TAB PO SCH (08:42)
[2019-08-14] MEDS: BUPROPION HCL 150 MG TABCR PO SCH (08:42)
[2019-08-14] MEDS: DOCUSATE SODIUM 100 MG CAP PO SCH (08:42)
[2019-08-14] MEDS: DULOXETINE HCL 30 MG DELAYED RELEASE PO SCH ×2 (08:42→18:04)
[2019-08-14] MEDS: FUROSEMIDE 20 MG TAB PO SCH (08:42)
[2019-08-14] MEDS: FAMOTIDINE 20 MG/2 ML VIAL IV SCH (08:42)
[2019-08-14] MEDS: FOLIC ACID 1 MG TAB PO SCH (08:42)
[2019-08-14] MEDS ORDERED: POTASSIUM CHLORIDE 20 MEQ TAB CR PO STA ×2 (08:49→09:13)
--- NOTE | 2019-08-14 08:51 | NUR ---
Notified Dr. Botello about potassium level 2.5. New orders received
--- NOTE | 2019-08-14 09:22 | Progress Note ---
DATE: SUBJECTIVE: The patient comes in with gastroenteritis/colitis. Pain has dissipated. The patient had a colonoscopy yesterday. Findings noted. Currently able to tolerate a complete diet. No chest pain. No shortness of breath. OBJECTIVE: VITAL SIGNS: Temperature is 98.1, pulse of 95, respirations of 18, blood pressure is 126/63, pulse oximetry of 96% on room air. HEENT: Normocephalic and atraumatic. Pupils are reactive to light and accommodation. CVS: S1 and S2 normal. Regular rate and rhythm. ABDOMEN: Slight tenderness present in the epigastric area and the left lower quadrant area, but much improved. EXTREMITIES: No clubbing, no cyanosis, no edema. LABORATORY DATA: All within normal limits on the . ASSESSMENT: A 74-year-old female with: 1. Colitis/gastroenteritis. 2. Leukocytosis. 3. Intractable nausea and pain. 4. Hyperlipidemia. 5. Morbid obesity. 6. Iron deficiency. PLAN: Okay to discharge home today. We will continue with the same medication. The patient to be followed up with me in about a week's time. Further recommendations per clinical course. Also, follow up with Dr. Dolan in a week's time. MD JUDIE Thapa/MICAH /[id number]
[2019-08-14] MEDS: IRON SUCROSE 100 MG in SODIUM CHLORIDE 0.9% 100 ML 100 ML IV SCH (10:00)
[2019-08-14 12:44] LABS: C DIFFICILE TOXIN A&B AMP PROB NEGATIVE (NEGATIVE)
[2019-08-14] MEDS ORDERED: POTASSIUM CHLORIDE 20 MEQ TAB CR PO NR (12:50)
--- NOTE | 2019-08-14 15:47 | NUR ---
Dr. Botello notified of repeat potassium level 3.0 Orders to hold discharge for now, repeat labs in the AM. Discharge time will be decided depending on AM labs tomorrow 08/15/2019.
[2019-08-14] MEDS ORDERED: POTASSIUM CHLORIDE 10MEQ EA PO NR (16:00)
[2019-08-14] MEDS: ENOXAPARIN 30 MG/0.3 ML SYR SC SCH (18:04)
[2019-08-15] VITALS: BP 117/56
[2019-08-15 04:00] VITALS: BP 122/64
[2019-08-15 05:35] LABS: ANION GAP 12.3 mmol/L (8-16); CALCIUM 8.5 mg/dL (8.4-10.2); CREATININE, SERUM 0.95 mg/dL (0.57-1.11); POTASSIUM 3.3 mmol/L (3.5-5.1)
[2019-08-15] MEDS ORDERED: POTASSIUM CHLO20 ME1 PO (06:38)
[2019-08-15] MEDS ORDERED: POTASSIUM CHLORIDE 20 MEQ TAB CR PO ONE (06:50)
--- NOTE | 2019-08-15 07:22 | Progress Note ---
DATE: SUBJECTIVE: The patient is a 74-year-old female who comes in with acute colitis. The patient had a colonoscopy done, two polyps were snared, showed some colitis. The patient is doing well, was planned for discharge yesterday; however, the potassium came back at 2.5; replacement was done yesterday. The patient's potassium went up to 3 and this morning, she is at 3.3. LABORATORY DATA: Rest of the labs; sodium is 142. BUN and creatinine were normal. Hematology labs are normal. Hemoglobin 10.3 and hematocrit 32.7. OBJECTIVE: VITAL SIGNS: Temperature is 98.1, pulse of 91, respirations of 20, blood pressure 122/64, pulse ox of 96%. HEENT: Normocephalic, atraumatic. Pupils are reactive. CVS: S1 and S2 normal. Regular rate and rhythm. ABDOMEN: Nontender, nondistended, and soft. EXTREMITIES: No clubbing. No cyanosis. No edema. ASSESSMENT/PLAN: Ms. Susan Mace with: 1. Colitis, gastroenteritis, status post colonoscopy, status post polypectomy. 2. Leukocytosis, which has completely resolved. 3. Hypokalemia, replacement in progress. The patient will be given both 60 mEq of potassium and she can be discharged home on 20 mEq of potassium daily. She will be seen in the clinic in about 2-3 days to repeat her potassium. 4. Hyperlipidemia. Continue with antihyperlipidemic agent. 5. Iron deficiency. The patient did get some IV infusions of Venofer. We will repeat and follow up with her in the office for iron levels. Further recommendation per clinical course. The patient can be discharged. She will be seen by me in about 2-[address] Dolan in a week's time. MD JUDIE Thapa/MODL /[id number]
[2019-08-15 08:09] VITALS: BP 160/72
[2019-08-15 08:40] VITALS: BP 160/72
[2019-08-15] MEDS: BUPROPION HCL 150 MG TABCR PO SCH (08:50)
[2019-08-15] MEDS: LISINOPRIL 20 MG TAB PO SCH (08:50)
[2019-08-15] MEDS: FOLIC ACID 1 MG TAB PO SCH (08:50)
[2019-08-15] MEDS: DULOXETINE HCL 30 MG DELAYED RELEASE PO SCH (08:50)
[2019-08-15] MEDS: FUROSEMIDE 20 MG TAB PO SCH (09:00)
[2019-08-15] MEDS: DOCUSATE SODIUM 100 MG CAP PO SCH (09:00)
[2019-08-15 11:55] VITALS: BP 143/77
--- NOTE | 2019-08-15 12:00 | NUR ---
Discharge instructions and prescription were given to the patient, she verbalized understanding. IV was removed with tip intact yesterday.
== END 2019-08-15 12:14 | disposition home or self-care (01) | DRG 392 ==
LOC: ER 13:25 → ERHOLD 17:51 → MED/SURG2 20:50
PROVIDERS: ADMIT Family Medicine; ATTEND Family Medicine
PROC: 0DBM8ZX Excision of Descending Colon, Via Natural or Artificial Opening Endoscopic, Diagnostic (ICD-10-PCS; principal; 2019-08-13 14:24)
PROC: 0DBN8ZX Excision of Sigmoid Colon, Via Natural or Artificial Opening Endoscopic, Diagnostic (ICD-10-PCS; 2019-08-13 14:24)
PROC: 0DBP8ZX Excision of Rectum, Via Natural or Artificial Opening Endoscopic, Diagnostic (ICD-10-PCS; 2019-08-13 14:24)
DX: A09 Infectious gastroenteritis and colitis, unspecified (principal); K63.3 Ulcer of intestine; I10 Essential (primary) hypertension; E78.5 Hyperlipidemia, unspecified; E66.01 Morbid (severe) obesity due to excess calories; Z96.653 Presence of artificial knee joint, bilateral; Z96.643 Presence of artificial hip joint, bilateral; Z90.49 Acquired absence of other specified parts of digestive tract; K57.30 Diverticulosis of large intestine without perforation or abscess without bleeding; K62.1 Rectal polyp; K64.8 Other hemorrhoids; D50.9 Iron deficiency anemia, unspecified; F32.9 Major depressive disorder, single episode, unspecified; G62.9 Polyneuropathy, unspecified; Z68.36 Body mass index [BMI] 36.0-36.9, adult; Z88.8 Allergy status to other drugs, medicaments and biological substances
CPT/HCPCS: 36415; 45380; 45384; 45385; 71045; 74176; 80048; 80053; 81001; 82270; 82550; 82553; 82607; 82728; 82746; 83540; 83605; 83630; 83690; 83993; 84132; 84466; 84484; 85025; 85045; 87045; 87177; 87328; 87493; 88305; 93005; 99285; J1610; J1650; J1756; J2270; J2405; J7030